=== PATIENT | male | born 1930 | race Asian ===

== ENCOUNTER 2018-12-27 10:49 | Inpatient (IN) | payer MEDICARE ==
[~2018-12-27] VITALS: Ht 165.1 cm; Wt 90.7 kg
--- NOTE | 2018-12-27 11:00 | NUR ---
DR. PITT AT BEDSIDE FOR PT EVAL AT THIS TIME.
--- NOTE | 2018-12-27 11:15 | NUR ---
RADIOLOGY AT BEDSIDE AT THIS TIME FOR CXR.
[2018-12-27] MEDS ORDERED: PIPER-TAZ 3.375 GM 50 ML IV ONE (12:00)
[2018-12-27 12:08] LABS: BASOPHILS % 0.1 % (0.0-1.0); EOSINOPHILS # (AUTO) 0.1 (0.0-0.4); EOSINOPHILS % 0.8 % (0.0-6.0); HEMATOCRIT 38.9 % (38.2-49.6); HEMOGLOBIN 12.3 g/dL (14.0-18.0); LYMPHOCYTES # (AUTO) 0.8 (1.0-3.2); LYMPHOCYTES % 11.5 % (18.0-39.1); MEAN CORPUSCULAR HEMOGLOBIN 25.9 pg (28-32); MEAN CORPUSCULAR HGB CONC 31.6 g/dL (31-35); MEAN CORPUSCULAR VOLUME 82.1 fL (81-99); MONOCYTES # (AUTO) 0.6 (0.2-0.8); MONOCYTES % 7.7 % (4.4-11.3); NEUTROPHILS # (AUTO) 5.7 (2.1-6.9); NEUTROPHILS % 78.7 % (38.7-80.0); PLATELET COUNT 157 x10e3/uL (140-360); RED BLOOD COUNT 4.74 x10e6/uL (4.3-5.7); RED CELL DISTRIBUTION WIDTH 18.5 % (11.7-14.4)
[2018-12-27 12:11] LABS: INR 0.89; PROTHROMBIN TIME 12.5 seconds (11.9-14.5)
[2018-12-27 12:12] LABS: PARTIAL THROMBOPLASTIN TIME 32.1 seconds (23.8-35.5)
[2018-12-27 12:19] LABS: ALBUMIN 3.2 g/dL (3.5-5.0); ANION GAP 16.6 mmol/L (8-16); CALCIUM 9.2 mg/dL (8.4-10.2); CREATININE, SERUM 1.15 mg/dL (0.72-1.25); MAGNESIUM 2.3 MG/DL (1.3-2.1); POTASSIUM 4.6 mmol/L (3.5-5.1)
[2018-12-27] MEDS: AZITHROMYCIN 500MG/NS 250 ML 250 ML IV SCH (12:34)
[2018-12-27] MEDS: ALBUTEROL SULF 0.083% NEB SOLN 3 ML NEB NEB PRN ×2 (12:41→14:51)
[2018-12-27] MEDS: IPRATROPIUM BROMIDE 0.02% 2.5 ML NEB NEB PRN ×2 (12:41→14:51)
[2018-12-27] MEDS: FUROSEMIDE INJ 10 MG/ML 4 ML VIAL IV SCH ×2 (12:45→21:15)
[2018-12-27 12:46] LABS: B-TYPE NATRIURETIC PEPTIDE2 190.3 pg/mL (0-100)
[2018-12-27 12:46] LABS: CLARITY,URINE CLEAR (CLEAR); COLOR,URINE YELLOW (YELLOW)
[2018-12-27 12:47] LABS: BILIRUBIN,URINE NEGATIVE (NEGATIVE); KETONES,URINE NEGATIVE (NEGATIVE); LEUKOCYTE ESTERASE ,URINE NEGATIVE (NEGATIVE); NITRITE,URINE NEGATIVE (NEGATIVE); PROTEIN,URINE DIPSTICK TRACE (NEGATIVE); URINE UROBILINOGEN 0.2 mg/dL (0.2 - 1)
[2018-12-27 12:49] LABS: BACTERIA,URINE FEW /HPF; EPITHELIAL CELLS,URINE FEW /LPF; WBC,URINE (MAN) 0-5 /HPF (0-5)
--- NOTE | 2018-12-27 13:29 | Diagnostic Imaging Report ---
EXAM: CHEST SINGLE (PORTABLE), AP Portable DATE: 12/27/2018 Time stamp on exam: 11:21 AM INDICATION: Shortness of breath COMPARISON: None FINDINGS: LINES/TUBES: None LUNGS: Left lung base obscured by effusion and/or mass. Moderate pulmonary vascular congestion. PLEURA: Left pleural effusion. HEART AND MEDIASTINUM: Heart is enlarged. BONES AND SOFT TISSUES: No acute findings. IMPRESSION: 1. Cardiomegaly with moderate pulmonary vascular congestion. 2. Left lung base obscured by effusion and/or mass. Signed by: Dr. Iain Lorenzana DO on 12/27/2018 1:26 PM
[2018-12-27 13:53] VITALS: BP 147/81
--- NOTE | 2018-12-27 14:00 | NUR ---
Received pt at this time time from ER. Pt is aox4 and able to verbalize needs. Pt is mostly Latvian speaking. Pt was admitted for PNA, chronic AFIB. Pt denies any pain but does have SOB with exertion. He is on 02 2L/NC. Home medications have been renewed.
[2018-12-27] MEDS ORDERED: ASPIR 8181 MG PO (14:06)
[2018-12-27] MEDS ORDERED: NEXIUM40 MG PO (14:06)
[2018-12-27] MEDS ORDERED: eliquis PO (14:06)
[2018-12-27] MEDS ORDERED: HYDROXYZINE HCL25 MG PO (14:06)
[2018-12-27] MEDS ORDERED: OMEGA 3 1,0001 EACH PO (14:06)
[2018-12-27] MEDS ORDERED: CLOPIDOGREL75 MG PO (14:06)
[2018-12-27] MEDS ORDERED: entresto PO (14:06)
[2018-12-27] MEDS ORDERED: ATENOLOL50 MG PO (14:06)
[2018-12-27] MEDS ORDERED: FOLIC ACID1 MG PO (14:06)
[2018-12-27] MEDS ORDERED: SIMVASTATIN20 MG PO (14:06)
[2018-12-27] MEDS ORDERED: FUROSEMIDE40 MG PO (14:06)
[2018-12-27 14:42] VITALS: BP 147/81
[2018-12-27] MEDS ORDERED: HYDROXYZINE HCL 25 MG TAB PO PRN (14:45)
[2018-12-27 15:20] VITALS: BP 147/81
[2018-12-27] MEDS: APIXAB 2.5 MG TABLET PO SCH (17:37)
[2018-12-27] MEDS: OMEGA 3 POLYUNSAT FATTY ACIDS 1000 MG SOFTGEL PO SCH (17:37)
[2018-12-27] MEDS ORDERED: LEVALBUTEROL HCL SOLN NEBU 1.25 MG/3 ML NEB INH PRN (18:00)
--- NOTE | 2018-12-27 18:05 | Diagnostic Imaging Report ---
EXAMINATION: CT scan of the chest without contrast. TECHNIQUE: Helical CT images of the chest were performed from the lung apices to the level of the adrenal glands. No intravenous contrast was administered Coronal and sagittal reformatted images were obtained.Dose modulation, iterative reconstruction, and/or weight based adjustment of the mA/kV was utilized to reduce the radiation dose to as low as reasonably achievable. COMPARISON: None. CLINICAL HISTORY:Shortness of breath, infection DISCUSSION: ABSENCE OF INTRAVENOUS CONTRAST DECREASES SENSITIVITY FOR DETECTION OF FOCAL LESIONS AND VASCULAR PATHOLOGY. LINES/TUBES: None. LUNGS AND AIRWAYS: Pulmonary venous congestion. Nodular consolidation measuring 2.7 cm in the left upper lobe. Lower lung atelectasis. PLEURA: No pneumothorax or pleural effusions. HEART AND MEDIASTINUM: The thyroid gland is normal. The heart is enlarged with aortic, valvular, and coronary artery calcifications. LYMPH NODES: Multiple nonenlarged mediastinal lymph nodes. ABDOMEN: Simple left renal cyst measuring 3.1 cm. BONES AND SOFT TISSUES: No acute bony abnormalities. IMPRESSION: Cardiomegaly with pulmonary venous congestion. Left upper lobe nodular consolidation. Follow-up CT in 3 months suggested. Coronary artery calcifications. Signed by: Dr. Brendan Bland M.D. on 12/27/2018 6:02 PM
[2018-12-27] MEDS: CEFTRIAXONE SOD 1 GM/NS 50 ML 50 ML IV SCH (19:13)
[2018-12-27] MEDS ORDERED: SODIUM CHLORIDE 0.9% 250ML 250 ML ONE (19:16)
[2018-12-27] MEDS: IPRATROPIUM BROMIDE 0.02% 2.5 ML NEB NEB SCH (19:30)
[2018-12-27] MEDS: LEVALBUTEROL HCL SOLN NEBU 1.25 MG/3 ML NEB INH SCH (19:30)
[2018-12-27 20:00] VITALS: BP 147/72
[2018-12-27 20:44] LABS: CREATINE KINASE MB 2.7 ng/mL (0-5.0)
[2018-12-27 21:15] VITALS: BP 147/72
[2018-12-27] MEDS: ATENOLOL 50 MG TAB PO SCH (21:15)
[2018-12-27] MEDS: SIMVASTATIN 20 MG TAB PO SCH (21:15)
[2018-12-28] VITALS (8 sets, daily range): BP systolic 112–157; BP diastolic 57–81
[2018-12-28] MEDS: LEVALBUTEROL HCL SOLN NEBU 1.25 MG/3 ML NEB INH SCH ×4 (01:00→19:00)
[2018-12-28] MEDS: IPRATROPIUM BROMIDE 0.02% 2.5 ML NEB NEB SCH ×4 (01:00→19:00)
[2018-12-28 06:11] LABS: BASOPHILS % 0.1 % (0.0-1.0); EOSINOPHILS # (AUTO) 0.1 (0.0-0.4); EOSINOPHILS % 0.9 % (0.0-6.0); HEMATOCRIT 39.7 % (38.2-49.6); HEMOGLOBIN 12.9 g/dL (14.0-18.0); LYMPHOCYTES % 15.1 % (18.0-39.1); MEAN CORPUSCULAR HEMOGLOBIN 26.4 pg (28-32); MEAN CORPUSCULAR HGB CONC 32.5 g/dL (31-35); MEAN CORPUSCULAR VOLUME 81.2 fL (81-99); MONOCYTES # (AUTO) 0.6 (0.2-0.8); MONOCYTES % 8.6 % (4.4-11.3); NEUTROPHILS # (AUTO) 4.9 (2.1-6.9); NEUTROPHILS % 73.2 % (38.7-80.0); PLATELET COUNT 151 x10e3/uL (140-360); RED BLOOD COUNT 4.89 x10e6/uL (4.3-5.7); RED CELL DISTRIBUTION WIDTH 18.4 % (11.7-14.4)
[2018-12-28 06:25] LABS: ANION GAP 15.1 mmol/L (8-16); CALCIUM 9.2 mg/dL (8.4-10.2); CREATININE, SERUM 1.29 mg/dL (0.72-1.25); POTASSIUM 4.1 mmol/L (3.5-5.1)
[2018-12-28 06:34] LABS: CREATINE KINASE MB 1.8 ng/mL (0-5.0)
[2018-12-28] MEDS: AZITHROMYCIN 500MG/NS 250 ML 250 ML IV SCH (08:30)
[2018-12-28] MEDS: FUROSEMIDE INJ 10 MG/ML 4 ML VIAL IV SCH ×2 (08:30→21:30)
[2018-12-28] MEDS: FOLIC ACID 1 MG TAB PO SCH (08:31)
[2018-12-28] MEDS: ASPIRIN 81 MG CHEW TAB PO SCH (08:31)
[2018-12-28] MEDS: APIXAB 2.5 MG TABLET PO SCH ×2 (08:31→17:04)
[2018-12-28] MEDS: OMEGA 3 POLYUNSAT FATTY ACIDS 1000 MG SOFTGEL PO SCH ×2 (08:31→17:04)
[2018-12-28] MEDS: PANTOPRAZOLE SOD 40 MG TABEC PO SCH (08:31)
[2018-12-28] MEDS: CLOPIDOGREL BISULFATE 75 MG TAB PO SCH (08:31)
--- NOTE | 2018-12-28 14:03 | NUR ---
SOCIAL WORK INITIAL ASSESSMENT Breast Worker to bedside to discuss plan of care with patient/family. CM/SW role and care transitions discussed. Anticipated discharge plan discussed along with duration of care. CM/SW discussed patients right to make decisions in care. CM/SW work hours given. Patient lives: IN HOUSE WITH FAMILY Admit/Transfer: VIA ED POA/Emergency contact: SON DR MASSIMO FIERRO [phone] Current/Previous Home Health: NONE PCP/Follow-up Care: RAMÍREZ Current/Previous DME: NONE Other Services: NONE Employment Status: NONE Areas of Concerns: NONE Referral Needs: NONE Education Needs: NONE IMM/SCHERER given and signed (if applicable): NA Goal for discharge: RETURN HOME CM/SW left business card at the bedside with contact information. Name and number was also written on the patients whiteboard. Patient verbalized understanding of discussion. CM will follow-up with ongoing discharge and transition of care needs.
[2018-12-28] MEDS: CEFTRIAXONE SOD 1 GM/NS 50 ML 50 ML IV SCH (17:05)
--- NOTE | 2018-12-28 19:16 | Consultation ---
DATE OF CONSULTATION: Cardiology Consultation HISTORY OF PRESENT ILLNESS: This is an 88-year-old man with a history of congestive heart failure, coronary artery disease status post coronary artery bypass graft surgery, hyperlipidemia, atrial fibrillation on anticoagulation, who presented to the emergency department with lethargy, shortness of breath, and fatigue. The patient states that he is currently feeling better; however, still short of breath. REVIEW OF SYSTEMS: A 12-point review of system was conducted, is negative otherwise as stated above in the HPI. PAST MEDICAL HISTORY: As stated above. PAST SURGICAL HISTORY: Bypass surgery. PAST FAMILY HISTORY: No premature coronary artery disease or sudden cardiac . SOCIAL HISTORY: No illicit drug, alcohol, or tobacco use. ALLERGIES: NO KNOWN DRUG ALLERGIES. MEDICATIONS: See medications reconciliation form. PHYSICAL EXAMINATION: VITAL SIGNS: Temperature is 96.6, heart rate is 71, respirations are 20, blood pressure is 117/69, and oxygen saturation 97% on 2 L nasal cannula. GENERAL: He is well appearing, well built, in no apparent distress. Alert and oriented x3. HEAD: Normocephalic, atraumatic. EYES: Extraocular muscles are intact. Conjunctivae clear. NECK: No JVD. No bruits. CARDIOVASCULAR: Irregularly irregular. Mild systolic murmur at the left sternal border. LUNGS: Scattered rales at the bases. ABDOMEN: Soft, nontender, and nondistended. EXTREMITIES: Venous stasis changes. Trace edema. LABORATORY DATA: Reviewed. Hemoglobin 12.9 and creatinine 1.2. Chest x-ray shows cardiomegaly with moderate pulmonary vascular congestion. CT of the chest showed cardiomegaly with pulmonary venous congestion in the left upper lobe nodular consolidation. A 12-lead electrocardiogram shows atrial fibrillation with nonspecific ST-T wave abnormalities. Echocardiogram revealed ejection fraction of 55%. IMPRESSION: 1. Acute on chronic diastolic heart failure. 2. Hypertension. 3. Hyperlipidemia. 4. Coronary artery disease, status post coronary artery bypass graft surgery. 5. Atrial fibrillation. RECOMMENDATIONS: Continue IV Lasix for diuresis. We will resume all other blood pressure and heart failure medications. Defer pneumonia treatment to primary team. We will continue to follow along. Ruperto Vasques DO BM/MODL /[id number]
[2018-12-28] MEDS: SIMVASTATIN 20 MG TAB PO SCH (21:30)
[2018-12-28] MEDS: ATENOLOL 50 MG TAB PO SCH (21:30)
[2018-12-29] VITALS (8 sets, daily range): BP systolic 101–145; BP diastolic 50–81
[2018-12-29] MEDS: LEVALBUTEROL HCL SOLN NEBU 1.25 MG/3 ML NEB INH SCH ×4 (00:22→20:06)
[2018-12-29] MEDS: IPRATROPIUM BROMIDE 0.02% 2.5 ML NEB NEB SCH ×4 (00:22→20:06)
[2018-12-29 07:10] LABS: ANION GAP 12.5 mmol/L (8-16); CALCIUM 9.1 mg/dL (8.4-10.2); CREATININE, SERUM 1.27 mg/dL (0.72-1.25); POTASSIUM 4.5 mmol/L (3.5-5.1)
[2018-12-29] MEDS: APIXAB 2.5 MG TABLET PO SCH ×2 (08:24→18:00)
[2018-12-29] MEDS: FOLIC ACID 1 MG TAB PO SCH (08:24)
[2018-12-29] MEDS: FUROSEMIDE INJ 10 MG/ML 4 ML VIAL IV SCH ×2 (08:24→20:47)
[2018-12-29] MEDS: PANTOPRAZOLE SOD 40 MG TABEC PO SCH (08:24)
[2018-12-29] MEDS: CLOPIDOGREL BISULFATE 75 MG TAB PO SCH (08:24)
[2018-12-29] MEDS: AZITHROMYCIN 500MG/NS 250 ML 250 ML IV SCH (08:24)
[2018-12-29] MEDS: ASPIRIN 81 MG CHEW TAB PO SCH (08:24)
[2018-12-29] MEDS: OMEGA 3 POLYUNSAT FATTY ACIDS 1000 MG SOFTGEL PO SCH ×2 (08:24→18:00)
[2018-12-29] MEDS ORDERED: BENZONATATE 100 MG CAP PO PRN (12:30)
[2018-12-29] MEDS: GUAIFENESIN 600 MG TAB PO SCH ×2 (13:07→18:00)
[2018-12-29] MEDS: BENZONATATE 100 MG CAP PO SCH ×2 (14:21→20:47)
[2018-12-29] MEDS ORDERED: POTASSIUM CHLORIDE 10MEQ EA PO ONE (15:00)
--- NOTE | 2018-12-29 16:00 | Progress Note ---
DATE: Cardiology Progress Note SUBJECTIVE: The patient is feeling better. Shortness of breath improved. No chest pain. OBJECTIVE: VITAL SIGNS: Temperature is 96.3, heart rate is 70, respirations are 20, blood pressure is 125/59, oxygen saturation 96% on 2 L nasal cannula. GENERAL: Well appearing, well developed, in no apparent distress. CARDIOVASCULAR: Regular rate and rhythm. No murmurs. LUNGS: Decreased breath sounds at bases. ABDOMEN: Soft, nontender, nondistended. EXTREMITIES: Trace edema. LABORATORY DATA: Reviewed. IMPRESSION: 1. Acute on chronic diastolic heart failure. 2. Hypertension. 3. Hyperlipidemia. 4. Coronary artery disease status post coronary artery bypass graft surgery. 5. Paroxysmal atrial fibrillation. RECOMMENDATIONS: Continue IV Lasix for diuresis. He still has rales on examination. Continue all other cardiovascular medications consisting of atenolol and Entresto. Continue pneumonia treatment per primary team. Ruperto Vasques DO BM/MODL /[id number]
[2018-12-29] MEDS: CEFTRIAXONE SOD 1 GM/NS 50 ML 50 ML IV SCH (18:00)
[2018-12-29] MEDS: ATENOLOL 50 MG TAB PO SCH (20:47)
[2018-12-29] MEDS: SIMVASTATIN 20 MG TAB PO SCH (20:47)
[2018-12-30] VITALS: BP 121/58
[2018-12-30] MEDS: LEVALBUTEROL HCL SOLN NEBU 1.25 MG/3 ML NEB INH SCH ×2 (01:00→07:34)
[2018-12-30] MEDS: IPRATROPIUM BROMIDE 0.02% 2.5 ML NEB NEB SCH ×2 (01:00→07:34)
[2018-12-30 04:00] VITALS: BP 133/81
--- NOTE | 2018-12-30 07:19 | NUR ---
PATIENT ASSISTED TO THE RESTROOM AND BACK TO THE RECLINING CHAIR. MILD EDEMA NOTED TO LOWER EXTREMITIES. WARM BLANKET PROVIDED, CALL LIGHT AT REACH. FAMILY AT BED SIDE.
[2018-12-30 07:20] VITALS: BP 140/85
[2018-12-30 07:57] VITALS: BP 140/85
[2018-12-30] MEDS ORDERED: AZITHROMYCIN 250 MG TAB PO SCH (09:00)
[2018-12-30] MEDS: FUROSEMIDE INJ 10 MG/ML 4 ML VIAL IV SCH (09:23)
[2018-12-30] MEDS: GUAIFENESIN 600 MG TAB PO SCH (09:23)
[2018-12-30] MEDS: ASPIRIN 81 MG CHEW TAB PO SCH (09:23)
[2018-12-30] MEDS: APIXAB 2.5 MG TABLET PO SCH (09:23)
[2018-12-30] MEDS: OMEGA 3 POLYUNSAT FATTY ACIDS 1000 MG SOFTGEL PO SCH (09:23)
[2018-12-30] MEDS: PANTOPRAZOLE SOD 40 MG TABEC PO SCH (09:23)
[2018-12-30] MEDS: BENZONATATE 100 MG CAP PO SCH (09:23)
[2018-12-30] MEDS: FOLIC ACID 1 MG TAB PO SCH (09:23)
[2018-12-30] MEDS: CLOPIDOGREL BISULFATE 75 MG TAB PO SCH (09:23)
[2018-12-30] MEDS ORDERED: POTASSIUM CHLO20 ME1 PO (10:59)
[2018-12-30] MEDS ORDERED: LEVAQUIN500 MG PO (11:00)
[2018-12-30] MEDS ORDERED: TESSALON PERLE100 MG PO (11:01)
[2018-12-30 11:28] VITALS: BP 100/55
--- NOTE | 2018-12-30 12:05 | NUR ---
PATIENT DISCHARGED HOME. DISCHARGE INSTRUCTIONS, PRESCRIPTIONS, AND FOLLOW UP GIVEN TO PATIENT HE VERBALIZED UNDERSTANDING. IV TO RIGHT HAND REMOVED WITH TIP INTACT. ALL PERSONAL ITEMS TAKEN WITH PATIENT. LEFT UNIT PER WHEEL CHAIR TO FRONT LOBBY IN STABLE CONDITION.
--- NOTE | 2018-12-30 18:00 | Progress Note ---
DATE: Cardiology Progress Note SUBJECTIVE: The patient is feeling much better. Denies any shortness of breath, palpitations, or chest pain. OBJECTIVE: VITAL SIGNS: Temperature 95.5, heart rate 85, respirations 20, blood pressure is 140/85, and ox saturation is 99% on 2 L nasal cannula. GENERAL: Well appearing, well built, no apparent distress. CARDIOVASCULAR: Regular rate and rhythm. LUNGS: Mild rales at bases. ABDOMEN: Soft, nontender, nondistended. EXTREMITIES: Trace edema. LABORATORY DATA: Reviewed. Telemetry monitoring revealed atrial fibrillation with controlled ventricular response. IMPRESSION: 1. Acute on chronic diastolic heart failure. 2. Hypertension. 3. Hyperlipidemia. 4. Coronary artery disease, status post coronary artery bypass graft surgery. 5. Paroxysmal atrial fibrillation. RECOMMENDATIONS: Resume p.o. Lasix for diuresis. Continue all other cardiovascular medications consisting of atenolol and Entresto. Continue pneumonia treatment per primary team. The patient may be discharged from a cardiovascular standpoint with outpatient followup. Ruperto Vasques DO BM/MODL /[id number]
--- NOTE | 2018-12-30 18:07 | NUR ---
PT DC'ING HOME TODAY. MET W PT AND SPOUSE AT THE BEDSIDE. IMM LETTER EXPLAINED; VERBALIZED UNDERSTANDING. IMM LETTER WAS SIGNED BY SPOUSE. COPY TO PT AND COPY TO CHART.
--- NOTE | 2018-12-31 04:47 | Discharge Summary ---
PRIMARY CARE PHYSICIAN: Benedict Lopez MD ERP PROJECT MANAGER: Colby Lisa MD FINAL DIAGNOSES: 1. Left upper lobe consolidation consisting with community-acquired pneumonia. 2. [id number] diastolic dysfunction, congestive heart failure with ejection fraction of 55%. 3. Baseline atrial fibrillation on anticoagulant therapy. 4. Baseline coronary artery disease with previous coronary artery bypass graft surgery. SUMMARY: The patient is an 88 years old male came in with cough and fever for the past 1 to 2 weeks. The patient also has bilateral lower extremity edema. CT scan showed left upper lobe consolidation and also vascular congestion. The patient was treating for pneumonia and congestive heart failure. He responded well. Lower extremity edema resolved. His breathing has significantly improved. The cough has resolved. The patient is otherwise stable. Discharged home today. Adjustment of his medication is made. He will take Lasix 40 mg in the morning and at noontime. Potassium 20 mEq daily. Levaquin 5 mg daily for 5 days. Mucinex twice a day for 15 days. Tessalon Perles p.r.n. for cough. All his home medication adjustment was made. He will stop the Lasix 20 mg daily. He will continue with all his other home medications including Plavix, aspirin, and Eliquis. The patient is otherwise stable. Discharged home today. Follow up with his family physician and maintenance groundman within a week. MD Cecy DurhamT/MODL /[id number]
--- NOTE | 2019-01-02 12:49 | History and Physical ---
PRIMARY CARE PHYSICIAN: Dr. Benedict Lopez. ARTILLERY MAINTENANCE SUPERVISOR: Colby Lisa MD. CHIEF COMPLAINT: Acute congestive heart failure exacerbation with possible pneumonia. HISTORY OF PRESENT ILLNESS: The patient is an 88 years old male with a recent coronary artery bypass graft surgery last year for the past 1-2 weeks and the patient has been having increasing shortness of breath and cough with dyspnea on exertion and lower extremity swelling. The patient also complained of some orthopnea as well, paroxysmal nocturnal dyspnea, where he sleeps on a recliner, mostly for comfort. The patient did not have any chest pain. He went to see Dr. Colby Lisa today and found to have significant abnormal lung exam confirmed with chest x-ray in the emergency room with vascular congestion, possible left lower lobe consolidation with pleural effusion. The patient is now admitted. CT scan just now done pending for results. In the meantime, the patient received aggressive diuresis with IV furosemide along with IV antibiotics, Zosyn and azithromycin for possible pneumonia. The patient is stabilized. He is on nasal cannula and the patient is stable with his spouse in the room. PAST MEDICAL HISTORY: Coronary artery disease and congestive heart failure, chronic atrial fibrillation on anticoagulant therapy, dyslipidemia, and hypertension. PAST SURGICAL HISTORY: Coronary artery bypass graft surgery last year. SOCIAL HISTORY: The patient does not smoke or use alcohol. No recreational drug use and the patient has very good family support. His son is Yony Riveramy John. ALLERGIES: NO KNOWN ALLERGIES. HOME MEDICATIONS: Aspirin, atenolol, Plavix, Nexium, folic acid, furosemide, hydroxyzine, omega-3 fatty acids, fish oil, simvastatin, Eliquis, and Entresto. PHYSICAL EXAMINATION: VITAL SIGNS: Temperature is 98, blood pressure 147/81, pulse rate is 82, respirations 22. GENERAL: The patient seems comfortable on 2 L nasal cannula, sitting in a recliner. HEENT: Normocephalic and atraumatic. Anicteric. NECK: Supple grossly. No gross carotid bruit. No gross JVD. PULMONARY: Diminished breath sounds bilaterally, worse on the left compared to the right. There are coarse rales. ABDOMEN: Soft, nontender, nondistention. EXTREMITIES: 1 to 2+ edema. There are chronic venous stasis skin changes. NEUROLOGIC EXAM: There is no focal deficit. The patient moves all extremities. LABORATORY DATA: WBC 7.3, hemoglobin 12.3, hematocrit 38.9, and platelets 157. Chemistry; sodium 142, potassium 4.6, chloride 104, bicarb 26, BUN is 19, creatinine 1.1, glucose is 120. Magnesium 2.3. Lactic acid 10, which is normal. Troponin negative. BNP is 190. Urinalysis is unremarkable. Chest x-ray showed cardiomegaly with moderate pulmonary vascular congestion with left lung base obscured by effusion and/or mass. This is a one view chest x-ray. CT of the chest still pending. IMPRESSION: 1. Acute on chronic congestive heart failure exacerbation. Pending echocardiogram. 2. Possible left lower lobe pneumonia consolidation. 3. Baseline atrial fibrillation, rate controlled on anticoagulant therapy, Eliquis. 4. Baseline coronary artery disease with recent last year coronary artery bypass graft surgery. PLAN: Diuresis with IV furosemide. Start the patient on IV antibiotics. Fluid restriction for now. Repeat lab work. Check CT of the chest without contrast. We will monitor the patient's electrolytes and renal function giving aggressive diuresis. We will monitor the patient closely. The patient may take his home medication Entresto. MD WHIT Durham/TONY /[id number]
== END 2018-12-30 12:18 | disposition home or self-care (01) | DRG 291 ==
LOC: ER 10:49 → ERHOLD 12:41 → MED/SURG3 14:00
PROVIDERS: ADMIT Internal Medicine; ATTEND Internal Medicine
DX: I11.0 Hypertensive heart disease with heart failure (principal); J18.9 Pneumonia, unspecified organism; I50.33 Acute on chronic diastolic (congestive) heart failure; I48.91 Unspecified atrial fibrillation; I25.10 Atherosclerotic heart disease of native coronary artery without angina pectoris; Z95.1 Presence of aortocoronary bypass graft; E78.5 Hyperlipidemia, unspecified; I48.0 Paroxysmal atrial fibrillation
CPT/HCPCS: 36415; 71045; 71250; 80048; 80053; 81001; 82550; 82553; 83605; 83735; 83880; 84484; 85025; 85610; 85730; 87040; 93005; 93306; 94640; 99285; J0456; J0696; J1940; J2543; J7050